=== PATIENT | male | born 1955 | race Caucasian/White ===

== ENCOUNTER → 2016-07-13 | Outpatient (CLI) | payer MEDICARE, OTHER | LOC: KOH-I 15:40 | DX: M54.2 Cervicalgia (principal); M54.9 Dorsalgia, unspecified; R05 Cough; M47.812 Spondylosis without myelopathy or radiculopathy, cervical region | CPT/HCPCS: 71020; 72050; 72070; 72110 ==

== ENCOUNTER → 2021-05-02 | Outpatient (CLI) | payer MEDICARE, OTHER | LOC: KOH-I 04-28 09:30 | DX: M25.512 Pain in left shoulder (principal); M54.2 Cervicalgia; R07.81 Pleurodynia; M19.012 Primary osteoarthritis, left shoulder; M95.4 Acquired deformity of chest and rib | CPT/HCPCS: 71111; 72040; 73030 ==